=== PATIENT | male | born 1995 | race Caucasian/White ===

== ENCOUNTER → 2017-02-18 | Outpatient (CLI) | payer OTHER ==
--- NOTE | 2017-02-18 15:17 | REP ---
RIGHT ANKLE SERIES, FOUR VIEWS: There is no evidence of an acute fracture, dislocation or intrinsic bone disease. There is mild to moderate lateral soft tissue swelling. IMPRESSION: No fracture or dislocation. Unreviewed
--- NOTE | 2017-02-18 15:18 | REP ---
RIGHT FOOT, FOUR VIEWS: There is no evidence of an acute fracture, dislocation or intrinsic bone disease. IMPRESSION: No fracture or dislocation. Signed by Tha Dorsey MD 02/18/2017 07:43 P
== END ==
LOC: M LRY 14:05
PROVIDERS: ATTEND Nurse Practitioner Family
DX: M25.571 Pain in right ankle and joints of right foot (principal)
CPT/HCPCS: 73610; 73630; G0463

== ENCOUNTER 2017-08-10 16:59 | Emergency (ER) | payer OTHER | END 2017-08-10 18:26 | disposition home or self-care (01) | LOC: M ED 16:59 | DX: S16.1XXA Strain of muscle, fascia and tendon at neck level, initial encounter (principal); X58.XXXA Exposure to other specified factors, initial encounter; Y92.9 Unspecified place or not applicable; Y93.9 Activity, unspecified; Z79.899 Other long term (current) drug therapy | CPT/HCPCS: 72125 ==

== ENCOUNTER → 2018-10-09 | Outpatient (CLI) | payer OTHER ==
[~2018-10-09] MED LIST: ADDE20CA3 PO; CYCL10TA PO; IBUP-1022 PO; MULT1TAB10 PO
--- NOTE | 2018-10-15 07:35 | SLEEPMSLT ---
DATE OF PROCEDURE: 10/09/2018 REFERRING PHYSICIAN: Dr. Oneill INTERPRETATION: Overnight polysomnography was performed for evaluation of excessive daytime sleepiness. A total 7 hours at 59 minutes of data was reviewed with total sleep time 441.5 minutes with minimally reduced sleep efficiency but normal sleep onset latency. The oxygen saturation remained 92% and above throughout the study. Electroencephalogram (EEG) remained normal throughout. Electrocardiogram (EKG) revealed sinus bradycardia. There were no significant respiratory events, respiratory arousals or periodic limb movements of sleep during this study. Moderate snoring was observed throughout this study. CONCLUSION: Primary snoring, no polysomnographic evidence of sleep apnea. RECOMMENDATIONS: If snoring remains a problem, Breathe Right strips or upper airway evaluation should be considered. MULTIPLE SLEEP LATENCY REPORT DATE: 10/10/2018 REFERRING PHYSICIAN: Dr. Oneill INTERPRETATION After overnight polysomnography, a multiple sleep latency test was performed. The patient was given four opportunities to take naps. Sleep onset latencies were 3.5, 3, 7, minutes. The patient did not achieve sleep in four naps. The mean sleep latency was 8.4 minutes. CONCLUSION: This multiple sleep latency test is mildly abnormal due to presence of mildly reduced sleep onset latency consistent with excessive daytime sleepiness, such as seen in idiopathic hypersomnia. No sleep onset REM sleep was observed.
== END ==
LOC: M SLEEP 19:53
PROVIDERS: ATTEND Psychiatry & Neurology Neurology
DX: G47.419 Narcolepsy without cataplexy (principal)